=== PATIENT | male | born 1995 | race Two or more races ===

== ENCOUNTER 2019-02-08 00:47 | Emergency (ER) | payer OTHER ==
[2019-02-08] MEDS ORDERED: NS 1,000 ML IV ONE (01:06)
[2019-02-08] MEDS ORDERED: FAMOTIDINE 20 MG/NACL 50 ML IV ONE (01:06)
[2019-02-08] MEDS ORDERED: ONDANSETRON 4 MG/2 ML VIAL IVP ONE (01:06)
--- NOTE | 2019-02-08 01:14 | EDPHY ---
H & P Stated Complaint: LUQ PAIN, VOMIT X 1 DAY Time Seen by Provider: 02/08/19 00:58 HPI/ROS: HPI The patient presents with upper abdominal pain with nausea and vomiting. The patient drink over 10 alcoholic drinks yesterday and last night. He awoke this morning and felt nauseated and has been vomiting intermittently throughout the day. He has been unable to take much fluid by mouth including water. About an hour ago he noticed pain in his left upper quadrant which he describes as a dull ache and noticed some movement in his abdomen that was concerning to him. This is been constant ever since. He has not had any diarrhea today. Later in the day today he noticed streaks of red blood in his vomitus.. REVIEW OF SYSTEMS 10 systems were reviewed and negative with the exception of the elements mentioned in the history of present illness. PMHx: Hyperlipidemia Soc Hx: College student, alcohol use PHYSICAL General Appearance: Alert, no distress Eyes: Pupils equal and round no pallor or injection ENT, Mouth: Mucous membranes moist Respiratory: There are no retractions, lungs are clear to auscultation Cardiovascular: Regular rate and rhythm Gastrointestinal: Abdomen is soft and non-tender, no masses, bowel sounds normal Neurological: A&O, moves all extremities Skin: Warm and dry, no rashes Musculoskeletal: Neck is supple non tender Extremities: symmetrical, full range of motion Psychiatric: Patient is oriented X 3, there is no agitation Source: Patient Exam Limitations: No limitations - Personal History Current Tetanus Diphtheria and Acellular Pertussis (TDAP): Unsure - Medical/Surgical History Hx Asthma: No Hx Chronic Respiratory Disease: No Hx Diabetes: No Hx Cardiac Disease: No Hx Renal Disease: No Hx Cirrhosis: No Hx Alcoholism: No Hx HIV/AIDS: No Hx Splenectomy or Spleen Trauma: No Other PMH: HIGH CHOLERTEROL, TONSIL - Social History Smoking Status: Current every day smoker Constitutional: Initial Vital Signs Temperature (C) 36.5 C 02/08/19 00:51 Heart Rate 100 02/08/19 00:51 Respiratory Rate 18 02/08/19 00:51 Blood Pressure 182/96 H 02/08/19 00:51 O2 Sat (%) 95 02/08/19 00:51 O2 Delivery Mode Room Air Allergies/Adverse Reactions: No Known Allergies Allergy (Verified 02/08/19 00:49) Home Medications: Medication Instructions Recorded NK [No Known Home Meds] 08/29/16 Medical Decision Making Differential Diagnosis: 23-year-old male with past medical history of hyperlipidemia presents with nausea, vomiting throughout the day today, now developing upper abdominal pain. This is in the setting of alcohol binge yesterday. Here, generally well-appearing, abdominal exam is benign. Differential diagnosis includes alcoholic gastritis, pancreatitis, less likely biliary colic. Plan for IV fluids, antiemetics, basic lab testing. Labs demonstrate mild leukocytosis. Mild transaminitis. Lipase is normal. Suspect alcoholic gastritis with mild hepatitis related to alcohol use. He felt better on my reassessment after receiving above treatments. He was able to tolerate fluids by mouth. He will be discharged home. - Data Points Laboratory Results: Laboratory Results 02/08/19 01:30 02/08/19 01:30 02/08/19 02/08/19 01:30 01:30 WBC 13.39 10^3/uL H 10^3/uL (3.80-9.50) RBC 5.15 10^6/uL 10^6/uL (4.40-6.38) Hgb 15.3 g/dL g/dL (13.7-17.5) Hct 41.1 % % (40.0-51.0) MCV 79.8 fL L fL (81.5-99.8) MCH 29.7 pg pg (27.9-34.1) MCHC 37.2 g/dL H g/dL (32.4-36.7) RDW 12.5 % % (11.5-15.2) Plt Count 337 10^3/uL 10^3/uL (150-400) MPV 10.5 fL fL (8.7-11.7) Neut % (Auto) 77.4 % H % (39.3-74.2) Lymph % (Auto) 16.8 % % (15.0-45.0) Leake % (Auto) 5.1 % % (4.5-13.0) Eos % (Auto) 0.2 % L % (0.6-7.6) Baso % (Auto) 0.2 % L % (0.3-1.7) Nucleat RBC Rel Count 0.0 % % (0.0-0.2) Absolute Neuts (auto) 10.36 10^3/uL H 10^3/uL (1.70-6.50) Absolute Lymphs (auto) 2.25 10^3/uL 10^3/uL (1.00-3.00) Absolute Monos (auto) 0.68 10^3/uL 10^3/uL (0.30-0.80) Absolute Eos (auto) 0.03 10^3/uL 10^3/uL (0.03-0.40) Absolute Basos (auto) 0.03 10^3/uL 10^3/uL (0.02-0.10) Absolute Nucleated RBC 0.00 10^3/uL 10^3/uL (0-0.01) Immature Gran % 0.3 % % (0.0-1.1) Immature Gran # 0.04 10^3/uL 10^3/uL (0.00-0.10) Sodium 137 mEq/L mEq/L (135-145) Potassium 4.3 mEq/L mEq/L (3.5-5.2) Chloride 101 mEq/L mEq/L (97-110) Carbon Dioxide 20 mEq/l L mEq/l (22-31) Anion Gap 16 mEq/L H mEq/L (6-14) BUN 11 mg/dL mg/dL (7-23) Creatinine 0.8 mg/dL mg/dL (0.7-1.3) Estimated GFR > 60 Glucose 99 mg/dL mg/dL (70-100) Calcium 10.8 mg/dL H mg/dL (8.5-10.4) Phosphorus 3.4 mg/dL mg/dL (2.5-4.5) Total Bilirubin 0.9 mg/dL mg/dL (0.1-1.4) Conjugated Bilirubin 0.4 mg/dL mg/dL (0.0-0.5) Unconjugated Bilirubin 0.5 mg/dL mg/dL (0.0-1.1) AST 68 IU/L H IU/L (17-59) ALT 109 IU/L H IU/L (21-72) Alkaline Phosphatase 87 IU/L IU/L (38-126) Total Protein 7.7 g/dL g/dL (6.3-8.2) Albumin 5.1 g/dL H g/dL (3.5-5.0) Lipase 151 IU/L IU/L (23-300) Medications Given: Discontinued Medications Sodium Chloride (Ns) 1,000 mls @ 0 mls/hr IV EDNOW ONE; Wide Open PRN Reason: Protocol Stop: 02/08/19 01:07 Last Admin: 02/08/19 01:22 Dose: 1,000 mls Famotidine/Sodium Chloride (Pepcid 20 Mg (Premix)) 50 mls @ 200 mls/hr IV EDNOW ONE Stop: 02/08/19 01:20 Last Admin: 02/08/19 01:23 Dose: 50 mls Ondansetron HCl (Zofran) 4 mg IVP EDNOW ONE Stop: 02/08/19 01:07 Last Admin: 02/08/19 01:23 Dose: 4 mg Departure - Departure Disposition: Home, Routine, Self-Care Clinical Impression: Transaminitis Abdominal pain Qualifiers: Abdominal location: upper abdomen, unspecified Qualified Code(s): R10.10 - Upper abdominal pain, unspecified Nausea & vomiting Qualifiers: Vomiting type: unspecified Vomiting Intractability: non-intractable Qualified Code(s): R11.2 - Nausea with vomiting, unspecified Condition: Good Instructions: Anne-Marie-Stone Syndrome (ED) Additional Instructions: Please avoid drinking alcohol. Please return to the emergency department if you are worse in any way. Referrals: NICHOLAS Farah,. [Clinic] - As per Instructions
[2019-02-08 02:24] VITALS: BP 146/79
[2019-02-08 02:24] LABS: PLATELET COUNT 337 10^3/uL (150-400)
== END 2019-02-08 02:49 | disposition home or self-care (01) ==
DX: R74.0 Nonspecific elevation of levels of transaminase and lactic acid dehydrogenase [LDH] (principal); R11.2 Nausea with vomiting, unspecified; R10.12 Left upper quadrant pain; E78.5 Hyperlipidemia, unspecified; E86.9 Volume depletion, unspecified
CPT/HCPCS: 96365; J2405